=== PATIENT | female | born 1995 | race Caucasian/White ===

== ENCOUNTER 2021-04-01 01:42 | Day surgery (SDC) | payer BC, SELFPAY ==
[2021-03-28 11:07] VITALS: BMI 34.8
[2021-04-01 10:00] VITALS: BP 115/88; PULSE 71; RESP 18; TEMP 36.4; O2SAT 100; BMI 35.9
[2021-04-01] MEDS: LACTATED RINGERS 1,000 ML 150 ML IV CONT (10:30)
--- NOTE | 2021-04-01 10:41 | P.CONGI_ITS ---
Assessment and Plan Assessment and plan (1) GERD (gastroesophageal reflux disease): Code(s): K21.9 - Gastro-esophageal reflux disease without esophagitis Status: Acute Assessment and Plan: GE reflux is suspected although symptom complex is somewhat atypical. Appears to be a component of anxiety. Poor response to antacids raise the question of other etiologies. Plan to initially evaluate her symptom complex with an EGD. Anti-reflux measures are encouraged and further recommendations will be given after endoscopy. GI Consult Note Consult date/time: 04/01/21 10:41 HPI: Marjan Gutierrez is a 26 year old female Presents for EGD. Patient reports over the last several years she will have episodes of her throat burning after eating. She will get epigastric discomfort associated with nausea occasional vomiting. Sometimes or heart palpitations will be present. For these reasons she presents for EGD. Patient has tried antacids with no avail. Has occasionally taken up to 14 days of Prilosec with inconsistent results. She states she recently has taken papaya supplements that seemed to help more than anything else. She denies any dysphagia. She has had no bleeding. Patient currently is on no medications whatsoever. Patient has a past medical history of anxiety. Her family history is noncontributory. Review of Systems Review of Systems: All systems reviewed & are unremarkable except as noted in HPI and below PMFSH Past Medical History Medical History (Updated 04/01/21 @ 10:43 by Lenny Ayala MD) Depression Sciatic nerve pain Social History Social History Smoking status: Never smoker Alcohol intake: current Drinks per week: 2 Substance use: never Substance use type: does not use Living arrangements: with family Spiritual care concerns: No Meds Home Medications and Allergies Home Medications Medication Instructions Recorded Confirmed Type levonorgestrel-ethinyl estrad 1 tablet PO DAILY 06/28/19 04/01/21 History [Lutera (28)] escitalopram oxalate 5 mg PO DAILY 03/28/21 04/01/21 History lorazepam [Ativan] 0.5 mg PO DAILY PRN 03/28/21 04/01/21 History Allergies Allergy/AdvReac Type Severity Reaction Status Date / Time No Known Allergies Allergy Verified 04/01/21 10:10 Vital Signs Vital Signs - 24 hr 04/01/21 10:00 Temperature 97.5 F L Pulse Rate 71 Respiratory Rate 18 Blood Pressure 115/88 Pulse Oximetry 100 Exam Narrative: Physical exam reveals patient to be alert. Vital signs stable. HEENT exam is unremarkable. Patient is anicteric. Lungs are clear to auscu ltation and percussion. Heart is without murmur or extra sounds. Abdominal exam bowel sounds are present soft nontender with no hepatosplenomegaly.
[2021-04-01 11:05] VITALS: BP 117/73; PULSE 79; RESP 18; O2SAT 98
[2021-04-01 11:15] VITALS: BP 123/77; PULSE 68; RESP 20; O2SAT 100
[2021-04-01 11:25] VITALS: BP 117/77; PULSE 64; RESP 20; O2SAT 100
== END 2021-04-01 11:49 | disposition home or self-care (01) ==
PROVIDERS: PCP Family Medicine; Visit Provider Internal Medicine Gastroenterology
PROC: 0DJ08ZZ Inspection of Upper Intestinal Tract, Via Natural or Artificial Opening Endoscopic (ICD-10-PCS; CPT 43235; principal; 2021-04-01 11:00)
DX: K21.9 Gastro-esophageal reflux disease without esophagitis (principal); F32.9 Major depressive disorder, single episode, unspecified
CPT/HCPCS: 43239; 87081; J2001; J2704; J7120

== ENCOUNTER 2024-06-29 09:27 | Emergency (ER) | payer BC, SELFPAY ==
--- NOTE | 2024-06-29 09:52 | ED_ITS ---
HPI - General Adult General Chief complaint: Upper Respiratory Infection Stated complaint: severe sinus pain Time Seen by Provider: 06/29/24 09:52 Source: patient Mode of arrival: ambulatory Limitations: no limitations History of Present Illness HPI narrative: 29-year-old female patient presents to [facility] with complaints sinus pain /dental pain. Patient states the pain started night but got signi ficantly worse yesterday. Patient states she has been taking [id number] Tylenol and ibuprofen which has not been helping the pain. Patient states the pain starts to the left side of the cheek and radiates to the ear. Denies fevers, body aches or chills. Denies any runny nose or congestion. Denies any coughing, chest pain or shortness of breath. Patient states she does have history of a root canal on that side. Related Data Home Medications Medication Instructions Recorded Confirmed bupropion HCl 300 mg 24 hr tablet, mg PO 06/29/24 06/29/24 extended release omeprazole 20 mg capsule,delayed mg 06/29/24 release Allergies Allergy/AdvReac Type Severity Reaction Status Date / Time No Known Allergies Allergy Verified 06/29/24 10:00 Review of Systems Review of Systems: CONSTITUTIONAL: Denies fever, chills, or sweats. EYES: Denies visual changes, redness, or discharge. ENT: Denies rhinorrhea, congestion, sore throat, or otalgia. Positive left dental/ cheek pain times 2-3 days CARDIOVASCULAR: Denies chest pain, palpitations, or edema. RESPIRATORY: Denies cough or dyspnea. GASTROINTESTINAL: Denies abdominal pain, nausea, vomiting, or diarrhea. GENITOURINARY: Denies dysuria or hematuria. SKIN: Denies rash or itching. MUSCULOSKELETAL: Denies back pain, joint pain, or myalgia. NEUROLOGIC: Denies headache, numbness, or weakness. PSYCHIATRIC: Denies anxiety or depression. [facility] Past Medical History Medical History Depression Diarrhea Generalized anxiety disorder GERD (gastroesophageal reflux disease) Surgical History Surgical History History of tonsillectomy 2007 Family History Family History Father IBS (irritable bowel syndrome) Asthma Thyroid disease Mother Asthma Bipolar 1 disorder Social History Social History Smoking status: Never smoker Alcohol intake: current Drinks per week: 2 Substance use: never Substance use type: does not use Lack of Transportation: No Lack of Food: Never True Current Housing: I Have Housing Concerned About Future Housing: No Difficulty Paying Gas/Electric Bills: No Difficulty Paying for Meds: No Currently Unemployed: No Education: Master's Degree or Higher Difficulty w/ Childcare or Family Care: No Living arrangements: with family Occupation/Education: occupation Gender identity (if verbalized by the patient): Female Sexual Orientation (if Verbalized by the Patient): Straight or Heterosexual Spiritual care concerns: No Comments At the time of my signature I agree with nursing past medical history, surgical, social, and family history. There is no relevant family history pertinent to the presenting complaint. Exam Narrative: GENERAL: Well-appearing, well-nourished, and in no acute distress. HEAD: Normocephalic, atraumatic. EYES: PERRLA and EOMI. ENT: Nares clear, no rhinorrhea or epistaxis. Mucous membranes moist. posterior pharynx with no erythema, tonsillar enlargement, exudates or lesions present. Bilateral TMs are clear no erythema or foreign bodies the canal. There is a small area to the left upper dental gum that appears to have some erythema and tenderness on palpitation. The cheek was palpated from the inside and small abscess noted. NECK: Supple. No lymphadenopathy CHEST: Clear to auscultation. No respiratory distress. HEART: Regular rate and rhythm. No murmur heard. Normal peripheral pulses. ABDOMEN: Soft, nontender, nondistended, normal active bowel sounds. EXTREMITIES: Normal range of motion. No edema. SKIN: Warm, dry, no rash. NEURO: No focal deficits. Alert and oriented x3. Course Course Level of Care: Express Care Visit Vital Signs Vital signs: Vital Signs Temperature 36.2 C L 06/29/24 10:01 Pulse Rate 87 06/29/24 10:01 Respiratory Rate 18 06/29/24 10:01 Blood Pressure 141/103 H 06/29/24 10:01 Pulse Oximetry 100 06/29/24 10:01 Oxygen Delivery Room Air 06/29/24 10:01 Temperature 36.2 C L 06/29/24 10:01 Pulse Rate 87 06/29/24 10:01 Respiratory Rate 18 06/29/24 10:01 Blood Pressure 141/103 H 06/29/24 10:01 Pulse Oximetry 100 06/29/24 10:01 Oxygen Delivery Room Air 06/29/24 10:01 vital signs reviewed The patient has been informed that they may have pre-hypertension or Hypertension based on a BP reading in the department. I recommend that the patient call the primary care provider listed on their discharge instructions or a physician of their choice this week to arrange follow up for further evaluation of possible pre-hypertension or Hypertension Medical Decision Making MDM Narrative Medical decision making narrative: Discussed with patient I do believe that she most likely has a dental abscess that is causing the pain. Discussed with patient I will discharge her home with an oral antibiotic and 800 mg ibuprofen for pain. Discussed with patient that she needs to follow up with her dentist for further evaluation as needed. Patient verbalized understanding denies any other questions or concerns at this time. Differential Diagnosis Differential Diagnosis: differential diagnosis: Allergic rhinitis, chronic sinusitis, tonsillitis, acu te sinusitis, infectious mononucleosis, seasonal influenza, pertussis, diphtheria, meningococcal disease, viral syndrome, viral bronchitis, RSV, COVID- 19 Vital Signs Vital Signs: Vital Signs Temperature 36.2 C L 06/29/24 10:01 Pulse Rate 87 06/29/24 10:01 Respiratory Rate 18 06/29/24 10:01 Blood Pressure 141/103 H 06/29/24 10:01 Pulse Oximetry 100 06/29/24 10:01 Oxygen Delivery Room Air 06/29/24 10:01 Temperature 36.2 C L 06/29/24 10:01 Pulse Rate 87 06/29/24 10:01 Respiratory Rate 18 06/29/24 10:01 Blood Pressure 141/103 H 06/29/24 10:01 Pulse Oximetry 100 06/29/24 10:01 Oxygen Delivery Room Air 06/29/24 10:01 Critical Care Time Critical Care Time Critical Care Time: No Discharge Plan Discharge Clinical Impression: Dental abscess Patient Disposition: Home, Self-Care Condition: Stable Instructions: Antibiotic Form, Dental Abscess (ED) Additional Instructions: Antibiotic as directed Avoid temperature extremes May apply heat or ice to the face Gentle brushing and flossing Alternate Tylenol and ibuprofen as needed for pain Follow-up with the dentist as soon as possible--see the list provided Prescriptions: New amoxicillin-pot clavulanate 875-125 mg tablet 1 tablet PO Q12H 7 Days Qty: 14 0RF ibuprofen 800 mg tablet 800 mg PO TID PRN (Reason: pain) 7 Days Qty: 28 0RF No Action omeprazole 20 mg capsule,delayed release(DR/EC) bupropion HCl 300 mg tablet extended release 24 hr PO Follow-up/Referrals: Aramis Landry MD [Primary Care Provider] - Time of Disposition: 10:24
[2024-06-29 10:01] VITALS: BP 141/103; PULSE 87; RESP 18; TEMP 36.2; O2SAT 100
== END 2024-06-29 10:30 | disposition home or self-care (01) ==
PROVIDERS: Emergency Provider Nurse Practitioner Family; PCP Family Medicine
DX: K04.7 Periapical abscess without sinus (principal); K21.9 Gastro-esophageal reflux disease without esophagitis; F41.1 Generalized anxiety disorder; F32.A Depression, unspecified
CPT/HCPCS: 99213; G0463